=== PATIENT | male | born 1960 | race Caucasian/White ===

== ENCOUNTER → 2021-12-09 07:26 | Outpatient (CLI) | payer OTHER, SELFPAY ==
--- NOTE | ~2021-12-09 | MR_ITS ---
EXAMINATION: MR knee RT wo con DATE: 12/09/2021 08:07 INDICATION: Right knee pain. No trauma. TECHNIQUE: Magnetic resonance imaging (MRI) of the right knee was performed without intravenous contr ast. Sequences included axial PD-weighted FS FSE, coronal PD-weighted FSE and PD-weighted FS FSE, sag ittal PD-weighted FSE, and sagittal T2-weighted FS FSE. COMPARISON: None. FINDINGS: Medial compartment: 5 mm full-thickness cartilage defect on the medial condyle with subjacent reactive marrow change. Mod erate diffuse cartilage thinning. Undersurface tear of the body, medial meniscus, with displacement o f a large fragment of meniscal tissue into the inferior medial recess. Mild osteophytosis. Lateral compartment: Intact meniscus. Mild lateral condyle cartilage thinning. Patellofemoral compartment: Mild osteophytosis. Intact cartilage and retinacula. Ligaments and tendons: Intact. Fluid: Moderate volume joint fluid. Large multiloculated debris-containing cystic structure in the medial so ft tissues, with apparent connection to the joint space. Osseous/other: No suspicious diffuse or focal marrow signal. IMPRESSION: 1. Undersurface tear of the medial meniscal body, with displacement of a meniscal flap into the infer omedial recess. 2. Large medial paranasal cyst. 3. 5 mm full-thickness cartilage defect on the medial femoral condyle. 4. Tricompartmental osteoarthritis. Reviewed, dictated and finalized at [facility]. IMPRESSION: 1. Undersurface tear of the medial meniscal body, with displacement of a menisc al flap into the inferomedial recess. 2. Large medial paranasal cyst. 3. 5 mm full-thickness cartilage defect on the medial femoral condyle. 4. Tricompartmental osteoarthritis.
== END ==
PROVIDERS: PCP Specialist; Visit Provider Specialist
DX: M71.21 Synovial cyst of popliteal space [Baker], right knee (principal); M17.11 Unilateral primary osteoarthritis, right knee
CPT/HCPCS: 73721

== ENCOUNTER 2023-11-28 09:04 | Outpatient (CLI) | payer BC, SELFPAY ==
--- NOTE | ~2023-11-28 | MR_ITS ---
MRI of the right knee Clinical history: Pain Technique: Coronal proton density and proton density-weighted images, sagittal proton-density and T2 fat-sat images, and axial proton-density fat-saturated images were acquired. COMPARISON: 12/09/2021 Findings: Anterior and posterior cruciate ligaments are intact. Medial collateral ligament and the la teral collateral ligament complex are intact. Popliteus tendon is intact. Complex tear of the posterior horn and body of medial meniscus is similar to prior exam. No lateral m eniscal tear seen. Articular cartilage is well preserved in the lateral and patellofemoral compartment. There is extensi ve moderate chondral malacia the medial femoral condyle. There is moderate chondral malacia the media l tibial plateau. Extensor mechanism is intact. Small joint effusion present. Minimal Kidd's cyst. Impression: Complex tearing of the posterior horn and body of the medial meniscus, similar to prior exam. Moderate chondromalacia the medial compartment. Reviewed, dictated and finalized at [facility]. Impression: Complex tearing of the posterior horn and body of the medial meniscus, similar to prior exam. Moderate chondromalacia the medial compartment.
== END 2023-11-28 09:05 | disposition home or self-care (01) ==
LOC: MICIMG 09:08
PROVIDERS: Visit Provider Orthopaedic Surgery
DX: S83.231A Complex tear of medial meniscus, current injury, right knee, initial encounter (principal); M94.261 Chondromalacia, right knee; X58.XXXA Exposure to other specified factors, initial encounter
CPT/HCPCS: 73721